=== PATIENT | male | born 1945 | race Caucasian/White ===

== ENCOUNTER → 2016-12-14 | Outpatient (CLI) | payer MEDICARE ==
--- NOTE | 2016-12-21 11:59 | RSPPFT ---
DATE OF PROCEDURE: 12/14/16 COMMENTS: VOLUMES DYNAMIC: FVC and FEV1 normal. STATIC: FRC, RV and TLC mildly reduced. FLOWS: FEV1% normal; FEF 25-75 mildly reduced. DIFFUSION: Severely reduced. FLOW VOLUME LOOP: Restrictive configuration with terminal airflow obstruction. IMPRESSION: Mild restrictive ventilatory defect with terminal airflow obstruction. There is a severe reduction in diffusion and no significant hyperinflation. No improvement post-bronchodilator.
== END ==
LOC: PHRSP 08:18
PROVIDERS: ATTEND Internal Medicine
DX: J84.10 Pulmonary fibrosis, unspecified (principal)
CPT/HCPCS: 94060; 94620; 94726; 94729